=== PATIENT | male | born 1950 | race Caucasian/White ===

== ENCOUNTER → 2020-12-08 | Outpatient (CLI) | payer OTHER ==
--- NOTE | 2020-12-08 14:26 | RAD ---
EXAM: CT Chest without IV contrast INDICATION: Reason: LUNG NODULE / Spl. Instructions: / History: TECHNIQUE: Multi-detector row CT images were acquired from the thoracic inlet through the upper abdo men without the use of IV contrast. Sagittal and coronal images were acquired from the transaxial so a. All CT scans performed at this facility utilize dose optimization techniques as appropriate to the exam, including the following: Automated exposure control and adjustment of the mA and/or KV accordi ng to patient size (this includes techniques or standardized protocols for targeted exams where dose is indication/reason for exam). COMPARISON: None available FINDINGS: The absence of IV contrast limits evaluation of soft tissue pathology. CARDIOVASCULAR: Unremarkable MEDIASTINUM & IGOR: No adenopathy or masses. LUNGS: Panlobular emphysema. Peripheral left upper lobe scarlike opacity best appreciated on image 26 of axial series 2 and coronal image 31 of series 5 is noted measuring approximately 11 mm. No pulmon ba infiltrate, nodule, or other focal abnormality is otherwise appreciated. PLEURAL SPACE: No pleural effusions or pneumothorax. OSSEOUS & SOFT TISSUE: Unremarkable ABDOMEN: The visualized portions of the upper abdomen are unremarkable. IMPRESSION: Emphysema. Peripheral left upper lobe scarlike opacity measuring approximately 11 mm could represent the residua of a previous pulmonary nodule. Otherwise no lung nodules identified on noncontrast chest CT. Correlation with previous examinations if available might be beneficial. Given the patient's fin dings of emphysema and age, consider enrollment in a [place] lung cancer screening program. Electronically signed by: Cesar Marte MD (12/08/2020 2:23 PM) [id number]
== END ==
LOC: CT 07:46
PROVIDERS: ATTEND Internal Medicine Pulmonary Disease
DX: J43.1 Panlobular emphysema (principal); R91.1 Solitary pulmonary nodule
CPT/HCPCS: 71250

== ENCOUNTER 2021-04-17 22:56 | Emergency (ER) | payer OTHER ==
[~2021-04-17] VITALS: Ht 177.8 cm; Wt 59.1 kg
--- NOTE | 2021-04-17 23:07 | ED.ADGEN ---
General Adult EDM: Chief Complaint: SHORTNESS OF BREATH HPI: HPI: Patient is a 70 year old male coming in for hypoxic minute measurements at home. Patient states he is feeling short of breath and checked his oxygen with his pulse oximeter was in the low 70s. Did some of his inhalers and sat went up to 70%. On arrival patient was satting in the mid 90s. Patient states he has a home O2 oxygen concentrator that he uses about once a week. Patient states he is very sedentary does not move around a lot because it makes him short of breath. Has a history of emphysema, denies any history of bronchitis. Denies any cough. Denies any fevers or weakness, no chest pain. No lower extremity edema. Review of Systems: Review of Systems: All other systems within normal limits except for as noted in the HPI Current Medications: Current Medications Medications (Trade) Dose Ordered Sig/Gurinder Start Time Stop Time Status Last Admin Dose Admin Albuterol/ Ipratropium (Duoneb) 3 ml 1X ONCE 04/17/21 23:15 04/17/21 23:50 DC 04/17/21 23:53 3 ML Methylprednisolone Sodium Succinate (SOLU-Medrol 125MG VIAL) 125 mg 1X ONCE 04/18/21 00:00 04/18/21 00:01 DC 04/18/21 00:39 125 MG Allergies: Allergies: Allergies Coded Allergies Type Severity Reaction Last Updated Verified No Known Drug Allergies 04/17/21 No Physical Exam: PE: Constitutional: Well developed, well nourished, no acute distress, non-toxic appearance. [] HENT: Normocephalic, atraumatic, bilateral external ears normal, nose normal. [] Eyes: PERRLA, conjunctiva normal, no discharge. [] Neck: No rigidity, supple, no stridor. [] Cardiovascular: Regular rate and rhythm, brisk cap refill [] Lungs & Thorax: Non labored symmetric respirations, no tachypnea or respiratory distress [] Abdomen: Soft, nondistended. Skin: Warm, dry, no erythema, no rash. [] Back: Unremarkable Extremities: No deformities, range of motion grossly intact, no lower extremity edema [] Neurologic: Alert and oriented X 3, no focal deficits noted. [] Psychologic: Affect normal, judgement normal, mood normal. [] Current Patient Data: Labs: Laboratory Tests Test 04/18/21 00:07 White Blood Count 5.1 x10^3/uL (4.0-11.0) Red Blood Count 4.55 x10^6/uL (4.30-5.70) Hemoglobin 14.4 g/dL (13.0-17.5) Hematocrit 42.4 % (39.0-53.0) Mean Corpuscular Volume 93 fL (79-100) Mean Corpuscular Hemoglobin 32 pg (25-35) Mean Corpuscular Hemoglobin Concent 34 g/dL (31-37) Red Cell Distribution Width 13.7 % (11.5-14.5) Platelet Count 222 x10^3/uL (140-400) Neutrophils (%) (Auto) 70 % (31-73) Lymphocytes (%) (Auto) 18 % (24-48) L Monocytes (%) (Auto) 9 % (0-9) Eosinophils (%) (Auto) 3 % (0-3) Basophils (%) (Auto) 1 % (0-3) Neutrophils # (Auto) 3.5 x10^3/uL (1.8-7.7) Lymphocytes # (Auto) 0.9 x10^3/uL (1.0-4.8) L Monocytes # (Auto) 0.4 x10^3/uL (0.0-1.1) Eosinophils # (Auto) 0.2 x10^3/uL (0.0-0.7) Basophils # (Auto) 0.0 x10^3/uL (0.0-0.2) Sodium Level 143 mmol/L (136-145) Potassium Level 4.1 mmol/L (3.5-5.1) Chloride Level 107 mmol/L (98-107) Carbon Dioxide Level 26 mmol/L (21-32) Anion Gap 10 (6-14) Blood Urea Nitrogen 27 mg/dL (8-26) H Creatinine 1.0 mg/dL (0.7-1.3) Estimated GFR (Cockcroft-Gault) 74.3 BUN/Creatinine Ratio 27 (6-20) H Glucose Level 89 mg/dL (70-99) Calcium Level 8.9 mg/dL (8.5-10.1) Total Bilirubin 0.2 mg/dL (0.2-1.0) Aspartate Amino Transferase (AST) 24 U/L (15-37) Alanine Aminotransferase (ALT) 30 U/L (16-63) Alkaline Phosphatase 114 U/L (46-116) Troponin I Quantitative < 0.017 ng/mL (0.000-0.055) BC-Bce-O-Type Natriuretic Peptide 76 pg/mL (0-124) Total Protein 6.9 g/dL (6.4-8.2) Albumin 3.6 g/dL (3.4-5.0) Albumin/Globulin Ratio 1.1 (1.0-1.7) Laboratory Tests 04/18/21 00:07 Laboratory Tests 04/18/21 00:07 Vital Signs: Vital Signs Date Time Temp Pulse Resp B/P (MAP) Pulse Ox O2 Delivery O2 Flow Rate FiO2 04/18/21 00:00 96 Room Air 04/17/21 22:56 97.8 75 18 181/97 97.8 EKG: EKG: Sinus rhythm, normal axis, no ST ovation or depression, no ectopy, normal intervals [] Heart Score: C/O Chest Pain: No HEART Score for Chest Pain: HEART Score for Chest Pain Response (Comments) Value History Slighlty/Non-Suspicious 0 ECG Normal 0 Age > 65 2 Risk Factors 1 or 2 Risk Factors 1 Troponin < Normal Limit 0 Total 3 Risk Factors: Risk Factors: DM, Current or recent (<one month) smoker, HTN, HLP, family history of CAD, obesity. Risk Scores: Score 0 - 3: 2.5% MACE over next 6 weeks - Discharge Home Score 4 - 6: 20.3% MACE over next 6 weeks - Admit for Clinical Observation Score 7 - 10: 72.7% MACE over next 6 weeks - Early Invasive Strategies Radiology/Procedures: Radiology/Procedures: EP interpret, consistent with emphysematous COPD [] Course & Med Decision Making: Course & Med Decision Making Pertinent Labs and Imaging studies reviewed. (See chart for details) [] Dragon Disclaimer: Dragon Disclaimer: This electronic medical record was generated, in whole or in part, using a voice recognition dictation system. Departure Departure Impression: Primary Impression: COPD exacerbation Disposition: HOME / SELF CARE / HOMELESS Condition: STABLE Referrals: BRETT MARSH MD (PCP) Patient Instructions: Chronic Obstructive Pulmonary Disease Exacerbation Scripts Prednisone (PREDNISONE) 50 Mg Tablet 1 TAB PO DAILY for steroid for 5 Days, #5 TAB Prov: MICHAEL JOHNSON MD 04/18/21 Ipratropium/Albuterol Sulfate (DUONEB 0.5-3(2.5) MG/3 ML) 3 Ml Ampul.neb 3 ML NEB QID PRN for WHEEZING for 10 Days, #40 EACH Prov: MICHAEL JOHNSON MD 04/18/21 MICHAEL JOHNSON MD Apr 17, 2021 23:07
[2021-04-17] MEDS ORDERED: IPRATRPIUM/ALBUTEROL 0.5/2.5MG 3 ML NEBU. NEB ONE ×2 (23:15)
[2021-04-18] MEDS ORDERED: methylPREDNISolone SOD SUCC PF 125 MG/2 ML VIAL. IM ONE
[2021-04-18 00:31] LABS: BASO % 1 % (0-3); EOS # 0.2 x10^3/uL (0.0-0.7); EOS % 3 % (0-3); HEMATOCRIT 42.4 % (39.0-53.0); HEMOGLOBIN 14.4 g/dL (13.0-17.5); LYMPH # 0.9 x10^3/uL (1.0-4.8); LYMPH % 18 % (24-48); MEAN CORPUSCULAR HEMOGLOBIN 32 pg (25-35); MEAN CORPUSCULAR HGB CONC 34 g/dL (31-37); MEAN CORPUSCULAR VOLUME 93 fL (79-100); MONO # 0.4 x10^3/uL (0.0-1.1); MONO % 9 % (0-9); NEUT # 3.5 x10^3/uL (1.8-7.7); NEUT % 70 % (31-73); PLATELET COUNT 222 x10^3/uL (140-400); RED BLOOD COUNT 4.55 x10^6/uL (4.30-5.70); RED CELL DISTRIBUTION WIDTH 13.7 % (11.5-14.5); WHITE BLOOD COUNT 5.1 x10^3/uL (4.0-11.0)
[2021-04-18 00:57] LABS: CALCIUM 8.9 mg/dL (8.5-10.1); GFR 74.3; POTASSIUM 4.1 mmol/L (3.5-5.1)
[2021-04-18 01:03] LABS: ALBUMIN 3.6 g/dL (3.4-5.0); ALBUMIN/GLOBULIN RATIO 1.1 (1.0-1.7); TOTAL BILIRUBIN 0.2 mg/dL (0.2-1.0); TOTAL PROTEIN 6.9 g/dL (6.4-8.2)
[2021-04-18 01:21] VITALS: BP 160/92
[2021-04-18] MEDS ORDERED: PRED50TA PO (01:29)
[2021-04-18] MEDS ORDERED: IPRA3AMP29 NEB (01:29)
--- NOTE | 2021-04-18 04:44 | EKG ---
[facility] [address] [place] [address] Test Date: 2021-04-17 Test Time: 23:18:09 Pat Name: CLAIRE LANG Department: Room: Gender: M Psychology Assistant: : 1950 Requested By: MICHAEL JOHNSON Order Number: [id number] Reading MD: Measurements Intervals [place] Rate: 70 P: CT: QRS: 52 QRSD: 84 T: 76 QT: 392 QTc: 426 Interpretive Statements IRREGULAR RHYTHM, NO P-WAVE FOUND OTHERWISE NORMAL ECG RI6.01 No previous ECG available for comparison
--- NOTE | 2021-04-18 07:08 | RAD ---
EXAMINATION: Chest radiograph. VIEWS: 2 views COMPARISON: 12/08/2020 INDICATION:70 years, Male, . COPD. FINDINGS: Normal cardiomediastinal silhouette. Similar pulmonary emphysema. No focal consolidation. No pleural effusion or pneumothorax. No acute osseous process. IMPRESSION: 1. No acute cardiopulmonary process. 2. Similar moderate pulmonary emphysema. Electronically signed by: David Scott MD (04/18/2021 7:05 AM) [id number]
== END 2021-04-18 01:43 | disposition home or self-care (01) ==
LOC: ER 22:56
DX: J44.1 Chronic obstructive pulmonary disease with (acute) exacerbation (principal)
CPT/HCPCS: 36415; 71046; 80053; 83880; 84484; 85025; 93005; 94640; 96372; 99285; J2930

== ENCOUNTER → 2021-07-08 | Outpatient (CLI) | payer OTHER ==
[~2021-07-08] MED LIST: IPRA3AMP29 NEB; PRED50TA PO; REGADENOSON 0.4 MG/5 ML DISP.SYRIN. IV ONE
--- NOTE | 2021-07-08 16:34 | CARD ---
MR#: [id number] Date of Study: 07/08/2021 Ordering Physician: PADDY MORGAN, Referring Physician: PADDY MORGAN, Tech: Theron Mtz [facility] APPROVED REPORT EXAM: Two-dimensional and M-mode echocardiogram with Doppler and color Doppler. Other Information Quality : AverageHR: 57bpm Rhythm : NSR INDICATION Chest Pain RISK FACTORS Smoking 2D DIMENSIONS Left Atrium(2D)3.7 (1.6-4.0cm)IVSd1.0 (0.7-1.1cm) Aortic Root(2D)3.8 (2.0-3.7cm)LVDd4.5 (3.9-5.9cm) LVOT Diameter2.1 (1.8-2.4cm)PWd1.0 (0.7-1.1cm) LVDs3.2 (2.5-4.0cm)FS (%) 27.6 % SV49.5 ml Aortic Valve AoV Peak Ramin.91.3cm/sAoV VTI19.6cm AO Peak GR.3.3mmHgLVOT Peak Ramin.84.6cm/s AO Mean GR.2mmHgAVA (VMAX)3.06cm2 Mitral Valve MV E Wdboqkbi38.0cm/sMV E Peak Gr.3mmHg MV DECEL [id number] A Dfrqjlza33.2cm/s MV E Mean Gr.1mmHgE/A Ratio0.8 Pulmonary Valve PV Peak Xnjvuony29.9cm/s Tricuspid Valve TR P. Lsmhbbma654uq/sTR Peak Gr.35mmHg Pulmonary Vein S1 Fishkdek88.8cm/sD2 Frukiceq39.5cm/s LEFT VENTRICLE The left ventricle is normal size. There is mild concentric left ventricular hypertrophy. The left ve ntricular systolic function is normal. LV ejection fraction is 55 to 60%. There is normal LV segment al wall motion. No left ventricle thrombus noted on this study. There is no ventricular septal defect visualized. There is no left ventricular aneurysm. There is no mass noted in the left ventricle. RIGHT VENTRICLE The right ventricle is normal size. There is normal right ventricular wall thickness. The right ventr icular systolic function is normal. ATRIA The left atrium size is normal. The right atrium size is normal. The interatrial septum is intact wit h no evidence for an atrial septal defect or patent foramen ovale as noted on 2-D or Doppler imaging. AORTIC VALVE The aortic valve is mildly sclerotic. Doppler and Color Flow revealed no significant aortic regurgita tion. There is no significant aortic valvular stenosis. There is no aortic valvular vegetation. MITRAL VALVE The mitral valve is mildly thickened. There is no evidence of mitral valve prolapse. There is no mitr al valve stenosis. Doppler and Color-flow revealed trace to mild mitral regurgitation. TRICUSPID VALVE The tricuspid valve is normal in structure and function. Doppler and Color Flow revealed trace to mil d tricuspid regurgitation. There is no tricuspid valve prolapse or vegetation. There is no tricuspid valve stenosis. PULMONIC VALVE The pulmonary valve is normal in structure and function. Doppler and Color Flow revealed no pulmonic valvular regurgitation. There is no pulmonic valvular stenosis. GREAT VESSELS The aortic root is normal in size. The ascending aorta is normal in size. The pulmonary artery is nor mal. The IVC is normal in size and collapses >50% with inspiration. PERICARDIAL EFFUSION There is no pleural effusion. There is no evidence of significant pericardial effusion. Critical Notification Critical Value: No <Conclusion> The left ventricle is normal size. The left ventricular systolic function is normal. LV ejection fraction is 55 to 60%. There is mild concentric left ventricular hypertrophy. Doppler and Color Flow revealed no significant aortic regurgitation. There is no significant aortic valvular stenosis. Doppler and Color-flow revealed trace to mild mitral regurgitation. Doppler and Color Flow revealed trace to mild tricuspid regurgitation. Signed by : Paddy Morgan MD Electronically Approved : 07/08/2021 16:34:25
--- NOTE | 2021-07-08 17:22 | RAD ---
MR#: [id number] Date of Study: 07/08/2021 Ordering Physician: ELIZABETH MORGAN, Referring Physician: IMAN BUTLER Tech: TRINH Krishnan APPROVED REPORT Test Type: Pharmacological Stress Nurse/Tech: Claudia Friedman RN Test Indications: Chest Pain Cardiac History: Family Hx, See EMR. Medications: See EMR. Medical History: COPD, Quit smoking 13mths ago, See EMR. Resting ECG: SR Resting Heart Rate: 56 bpm Resting Blood Pressure: 142/74mmHg Pretest Chest Pain: No chest pain Nurse/Tech Notes Lungs CTA, Heart tones regular. Consent: The procedure was explained to the patient in lay terms. Informed consent was witnessed. Lee eout was entered into [facility]. History and Stress Test performed by TRINH Krishnan Pharm. Details Pharmacologic stress testing was performed using 0.4mg per 5ml of regadenoson given intravenously ove r 7-10 seconds. Stress Symptoms No chest pain or symptoms. POST EXERCISE Reason for Termination: Infusion complete Max HR: 78 bpm Max Blood Pressure: 166/76mmHg Blood Pressure response to exercise: Normal blood pressure response during stress. Heart Rate response to exercise: WNL Chest Pain: No. Arrhythmia: No. INTERPRETATION Stress EKG Conclusion: The resting EKG shows a sinus arrhythmia with nonspecific ST-T wave changes. The stress EKG shows no significant change from baseline. No EKG evidence of stress-induced ischemia. Imaging Protocol IMAGE PROTOCOL: Rest Tc-99m/stress Tc-99m 1 day Rest: Stress: Viability: Radiopharm.Tc99m XuhpwekxhKw76l Sestamibi Stdf40aBv 32mCi Duration 15min. 13min. Img Date 07/08/2021 07/08/2021 Inj-Img Ntdp25kof. 60min. Rest Admin Site:IV - Right AntecubitalAdministrator:RT Donato (R)(N) Stress Admin Site: IV - Right AntecubitalAdministrator: TRINH Krishnan STRESS DATA End Diast. Vol.83.0mlLVEDV index BSA47.0ml End Syst. Vol.23.0mlLVESV index BSA13.0ml Myocardial Pteo721.0gEject. Wgdcbnzm95.0% Stress Scores Regional WT1.00Summed WT13.00 Regional WM0.00Summed WM0.00 LV Perfusion The stress scans show slight inferior wall thinning. The rest scans show slight inferior wall thinning. Nuclear imaging shows no reversible ischemia. There is slight fixed inferior wall thinning most consistent with an attenuation defect. Wall Motion Left ventricular systolic function is normal with no regional wall motion abnormalities and an ejecti on fraction of greater than 70%. LV Perf. Quant 17 Seg. SSS3.00 17 Seg. SRS4.00 17 Seg. SDS0.00 Stress Defect Extent (% LAD)0.00Rest Defect Extent (% LAD)0.00Rev. Defect Extent (% LAD)0.00 Stress Defect Extent (% LCX) 0.00Rest Defect Extent (% LCX)0.00Rev. Defect Extent (% LCX)0.00 Stress Defect Extent (% RCA)14.40Rest Defect Extent (% RCA)27.80Rev. Defect Extent (% RCA)0.00 Stress Defect Extent (% JAIRO)2.80Rest Defect Extent (% JAIRO)5.40Rev. Defect Extent (% JAIRO)0.00 Conclusion 1. No EKG evidence of stress-induced ischemia. 2. Nuclear imaging shows no reversible ischemia. 3. Nuclear imaging has a slight fixed inferior wall defect most consistent with an attenuation artifa ct. 4. Left ventricular systolic function is normal with no regional wall motion abnormalities and an eje ction fraction of greater than 70%. 5. Moderately low risk Lexiscan nuclear stress test. Signed by : Elizabeth Morgan MD Electronically Approved : 07/08/2021 17:22:23
== END ==
LOC: ECHO 07:26
PROVIDERS: ATTEND Internal Medicine Cardiovascular Disease
DX: I08.3 Combined rheumatic disorders of mitral, aortic and tricuspid valves (principal); R06.00 Dyspnea, unspecified; R07.9 Chest pain, unspecified; F17.210 Nicotine dependence, cigarettes, uncomplicated
CPT/HCPCS: 78452; 93017; 93306; A9500; J2785

== ENCOUNTER → 2021-12-20 | Outpatient (CLI) | payer MEDICARE ==
[~2021-12-20] MED LIST changes: -REGADENOSON 0.4 MG/5 ML DISP.SYRIN. IV ONE
--- NOTE | 2021-12-20 09:37 | RAD ---
EXAM: Chest CT without intravenous contrast. HISTORY: Pulmonary nodule. TECHNIQUE: Computed tomographic images of the chest were obtained without contrast. Multiplanar refor matting was performed. *One or more of the following individualized dose reduction techniques were utilized for this examina tion: 1. Automated exposure control. 2. Adjustment of the mA and/or kV according to patient size. 3. Use of iterative reconstruction technique. COMPARISON: 12/08/2020. FINDINGS: The heart is normal in size. There is coronary artery calcification. The aorta is normal in caliber. There are stable nonspecific mediastinal lymph nodes. These are not pathologically enlarged . There is emphysema. There is no pneumothorax or pleural effusion. There is bronchial wall thickenin g due to the sequela of bronchitis. There is bilateral basilar and posterior dependent atelectasis. T here is also atelectasis or scarring within the lingula and anterior right middle lobe. No suspicious pulmonary nodule is seen. There is no acute finding involving the visualized upper abdomen. There is no acute or suspicious osseous finding. IMPRESSION: 1. Severe emphysema with multifocal pleural parenchymal scarring. 2. Bronchial wall thickening due to the sequela of bronchitis. No focal infiltrate is seen. 3. No suspicious pulmonary nodule. Lung RADS category 1: Follow-up in 12 months is recommended. Electronically signed by: Pilar Espinoza MD (12/20/2021 9:35 AM) [id number]
== END ==
LOC: CT 08:43
PROVIDERS: ATTEND Internal Medicine Pulmonary Disease
DX: J43.9 Emphysema, unspecified (principal); I25.10 Atherosclerotic heart disease of native coronary artery without angina pectoris; J98.09 Other diseases of bronchus, not elsewhere classified; J98.11 Atelectasis; Z87.891 Personal history of nicotine dependence
CPT/HCPCS: 71250